=== PATIENT | male | born 1965 | race Caucasian/White ===

== ENCOUNTER → 2019-06-26 | Outpatient (CLI) | payer OTHER ==
[2019-06-26 14:34] LABS: EOS # 0.1 (0.04-0.40); EOS % 0.6 % (0.0-4.0); HEMATOCRIT 41.7 % (42.0-52.0); HEMOGLOBIN 13.7 g/dL (13.5-18.0); LYMPH# 2.2 (1.50-4.00); MEAN CELL VOLUME 90 fl (78-100); MEAN CORPUSCULAR HEMOGLOBIN 30 pg (27-31); MEAN CORPUSCULAR HGB CONC 33 g/dL (33-37); MEAN PLATELET VOLUME 8.7 fl (7.4-10.4); MONO # 1.1 (0.20-0.80); NEU # 9.1 (1.40-6.50); PLATELET COUNT 300 K/mm3 (130-400); RED BLOOD COUNT 4.64 M/mm3 (4.20-5.60); RED CELL DISTRIBUTION WIDTH 12.8 % (11.5-14.5); WHITE BLOOD COUNT 12.5 K/mm3 (4.8-10.8)
[2019-06-26 14:42] LABS: ALBUMIN 4.2 g/dL (3.5-5.0); POTASSIUM 4.4 mmol/L (3.5-5.1)
[2019-06-26 14:44] LABS: CALCIUM 9.7 mg/dL (8.3-10.5)
[2019-06-26 14:45] LABS: TOTAL PROTEIN 8.3 g/dL (6.4-8.3)
[2019-06-26 14:47] LABS: TOTAL BILIRUBIN 0.6 mg/dL (0.2-1.2)
[2019-06-26 18:47] LABS: URINE APPEARANCE HAZY; URINE COLOR YELLOW
[2019-06-26 18:48] LABS: URINE BILIRUBIN NEGATIVE (NEGATIVE); URINE BLOOD NEGATIVE (NEGATIVE); URINE KETONE NEGATIVE (NEGATIVE); URINE LEUKOCYTE ESTERASE NEGATIVE (NEGATIVE); URINE NITRATE NEGATIVE (NEGATIVE); URINE PROTEIN(semi-quant) 1+ mg/dL (NEGATIVE); URINE UROBILINOGEN NORMAL (NORMAL)
[2019-06-26 18:49] LABS: URINE MUCUS PRESENT (NOT PRESENT)
== END ==
LOC: LAB 14:17
PROVIDERS: Nurse Practitioner
DX: N50.811 Right testicular pain (principal); R39.9 Unspecified symptoms and signs involving the genitourinary system